=== PATIENT | male | born 1975 | race African-American/Black ===

== ENCOUNTER 2019-07-18 15:55 | Emergency (ER) | payer MEDICAID ==
[~2019-07-18] VITALS: Ht 177.8 cm; Wt 91.2 kg
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
[2019-07-18 16:44] LABS: ANION GAP 7 mmol/L (5-15); CALCIUM 8.7 mg/dL (8.5-10.1); CHLORIDE 104 mmol/L (98-107); CREATININE 1.29 mg/dL (0.7-1.3)
[2019-07-18 16:45] LABS: ALANINE AMINOTRANSFERASE 14 U/L (12-78); ALBUMIN 3.5 g/dL (3.4-5.0)
[2019-07-18 16:47] LABS: ALKALINE PHOSPHATASE 71 U/L (45-117); BILIRUBIN,TOTAL 0.9 mg/dL (0.2-1.0); TOTAL PROTEIN 7.9 g/dL (6.4-8.2)
[2019-07-18 16:49] LABS: MEAN CORPUSCULAR HEMOGLOBIN 28.6 pg (27.5-34.5); MEAN CORPUSCULAR HGB CONC 32.2 g/dL (33.2-36.2); MEAN CORPUSCULAR VOLUME 88.9 fL (81-97); MEAN PLATELET VOLUME 8.3 fL (7.4-10.4); PLATELET COUNT 285 x10^3/uL (130-400); RED BLOOD COUNT 5.26 x10^6/uL (4.38-5.82); RED CELL DISTRIBUTION WIDTH 15.1 % (9.4-14.8)
[2019-07-18 17:13] LABS: MD YES
[2019-07-18 17:17] LABS: EOS#(MANUAL) 0.21 x10^3/uL (0.0-0.4); EOS% (MANUAL) 4 % (1-7); LYMPH#(MANUAL) 2.03 x10^3/uL (1-3.4); LYMPHS% (MANUAL) 39 % (22-44); MONOS#(MANUAL) 0.47 x10^3/uL (0.3-2.7); MONOS% (MANUAL) 9 % (2-9); SEGS% (MANUAL) 48 % (42-75)
[2019-07-18 17:18] LABS: <PLATELET ESTIMATE> ADEQUATE; <PLT MORPHOLOGY> NORMAL PLT MORPH; ANISOCYTOSIS 1+
--- NOTE | 2019-07-18 17:23 | NUR ---
pt resting in [facility]. pt's aox4. resps even and unlabored. bp/spo2 monitors in place. call light within reach. at bedside.
[2019-07-18 18:05] VITALS: BP 147/95
== END 2019-07-18 18:10 | disposition home or self-care (01) ==
LOC: ED 16:52
DX: R05 Cough (principal); R11.2 Nausea with vomiting, unspecified; E11.9 Type 2 diabetes mellitus without complications; F17.200 Nicotine dependence, unspecified, uncomplicated
CPT/HCPCS: 36415; 71045; 80053; 83690; 85025; 93005; 99284

== ENCOUNTER 2020-02-05 22:37 | Inpatient (IN) | payer MEDICAID ==
[~2020-02-05] VITALS: Ht 177.8 cm; Wt 92.8 kg
[2020-02-05 23:00] VITALS: BP 122/78
[2020-02-05] MEDS ORDERED: POLYETHYLENE GLYCOL 17 GM PACKET PO PRN (23:30)
[2020-02-05] MEDS ORDERED: DOCUSATE 100 MG CAPSULE PO PRN (23:30)
[2020-02-05] MEDS ORDERED: ONDANSETRON ODT 4 MG PO PRN (23:30)
[2020-02-05] MEDS ORDERED: BISACODYL 10 MG SUPP PR PRN (23:30)
[2020-02-06 00:24] VITALS: BP 122/78
[2020-02-06 00:24] LABS: MICROSCOPIC NOT IND
[2020-02-06 06:45] LABS: CHOL/HDL RATIO 2.2; FREE T4 (FREE THYROXINE) 1.14 ng/dL (0.76-1.46); LDL/HDL RATIO 0.9 (0.5-3.0)
[2020-02-06 07:27] VITALS: BP 138/76
[2020-02-06] MEDS: NICOTINE 21 MG/24 HR PATCH.TD24 TD SCH (08:44)
[2020-02-06 19:06] VITALS: BP 156/98
[2020-02-07 07:31] VITALS: BP 151/106
[2020-02-07] MEDS: NICOTINE 21 MG/24 HR PATCH.TD24 TD SCH (08:39)
[2020-02-07] MEDS ORDERED: PRAZ2CAP2 PO (10:40)
[2020-02-07] MEDS ORDERED: SERT-237 PO (10:40)
[2020-02-07] MEDS ORDERED: BUPR150T6 PO (10:40)
[2020-02-07] MEDS: ESCITALOPRAM 10MG TABLET PO SCH (10:46)
[2020-02-07] MEDS: BUPROPION SR 150 MG TABLET PO SCH (12:57)
[2020-02-07 19:43] VITALS: BP 138/94
[2020-02-07] MEDS: ACETAMINOPHEN 325 MG TABLET PO PRN (20:14)
[2020-02-07] MEDS: PRAZOSIN 2 MG CAPSULE PO SCH (20:14)
[2020-02-08 07:31] VITALS: BP 152/108
[2020-02-08] MEDS: BUPROPION SR 150 MG TABLET PO SCH (08:20)
[2020-02-08] MEDS: ESCITALOPRAM 10MG TABLET PO SCH (08:20)
[2020-02-08] MEDS: NICOTINE 21 MG/24 HR PATCH.TD24 TD SCH (08:21)
[2020-02-08] MEDS ORDERED: LISINOPRIL 5 MG TABLET PO SCH (09:00)
[2020-02-08 10:45] VITALS: BP 156/102
[2020-02-08] MEDS ORDERED: LISINOPRIL 5 MG TABLET ONE (11:27)
[2020-02-08] MEDS ORDERED: LISINOPRIL 10 MG TABLET PO ONE (11:30)
[2020-02-08 15:01] VITALS: BP 150/100
[2020-02-08 19:09] VITALS: BP 146/93
[2020-02-08] MEDS: PRAZOSIN 2 MG CAPSULE PO SCH (20:25)
[2020-02-08] MEDS: ACETAMINOPHEN 325 MG TABLET PO PRN (20:25)
[2020-02-08] MEDS: LISINOPRIL 20 MG TABLET PO SCH (20:26)
[2020-02-09 07:50] VITALS: BP 149/94
[2020-02-09] MEDS: NICOTINE 21 MG/24 HR PATCH.TD24 TD SCH (09:00)
[2020-02-09] MEDS: ESCITALOPRAM 10MG TABLET PO SCH (09:03)
[2020-02-09] MEDS: BUPROPION SR 150 MG TABLET PO SCH (09:03)
[2020-02-09] MEDS: LISINOPRIL 20 MG TABLET PO SCH ×2 (09:03→20:16)
[2020-02-09 18:59] VITALS: BP 134/95
[2020-02-09] MEDS: PRAZOSIN 2 MG CAPSULE PO SCH (20:16)
[2020-02-09] MEDS: ACETAMINOPHEN 325 MG TABLET PO PRN (20:16)
[2020-02-09] MEDS: VRAYLAR 1.5 MG PO SCH (21:18)
[2020-02-10 07:00] VITALS: BP 131/89
[2020-02-10] MEDS: NICOTINE 21 MG/24 HR PATCH.TD24 TD SCH (09:00)
[2020-02-10] MEDS: LISINOPRIL 20 MG TABLET PO SCH ×2 (09:22→20:58)
[2020-02-10] MEDS: ESCITALOPRAM 10MG TABLET PO SCH (09:23)
[2020-02-10] MEDS: BUPROPION SR 150 MG TABLET PO SCH (09:23)
[2020-02-10 20:06] VITALS: BP 104/70
[2020-02-10] MEDS: PRAZOSIN 2 MG CAPSULE PO SCH (20:58)
[2020-02-10] MEDS: VRAYLAR 1.5 MG PO SCH (21:00)
[2020-02-11 07:33] VITALS: BP 105/69
[2020-02-11] MEDS: NICOTINE 21 MG/24 HR PATCH.TD24 TD SCH (09:00)
[2020-02-11] MEDS ORDERED: LISI-170 PO (10:40)
[2020-02-11] MEDS ORDERED: ESCI10TA PO (10:40)
[2020-02-11] MEDS ORDERED: BUPR150T73 PO (10:40)
[2020-02-11] MEDS ORDERED: NICO-487 TD (10:40)
[2020-02-11] MEDS ORDERED: PRAZ2CAP2 PO (10:40)
[2020-02-11] MEDS ORDERED: VRAYLAR PO (10:40)
[2020-02-11] MEDS: LISINOPRIL 20 MG TABLET PO SCH (11:00)
[2020-02-11] MEDS: ESCITALOPRAM 10MG TABLET PO SCH (11:00)
[2020-02-11] MEDS: BUPROPION SR 150 MG TABLET PO SCH (11:00)
== END 2020-02-11 12:46 | disposition home or self-care (01) | DRG 750 ==
LOC: 3E 22:59
PROVIDERS: ADMIT Psychiatry & Neurology Psychosomatic Medicine; ATTEND Psychiatry & Neurology Psychosomatic Medicine
DX: F25.0 Schizoaffective disorder, bipolar type (principal); F10.10 Alcohol abuse, uncomplicated; F11.20 Opioid dependence, uncomplicated; F12.90 Cannabis use, unspecified, uncomplicated; F15.20 Other stimulant dependence, uncomplicated; F17.210 Nicotine dependence, cigarettes, uncomplicated; T14.91XA Suicide attempt, initial encounter; R07.89 Other chest pain; F51.5 Nightmare disorder; I10 Essential (primary) hypertension; Z59.0 Homelessness; Z79.899 Other long term (current) drug therapy
CPT/HCPCS: 36415; 71045; 80061; 81003; 82607; 84439; 84443; 93005

== ENCOUNTER 2020-02-19 07:20 | Emergency (ER) | payer MEDICAID ==
[~2020-02-19] VITALS: Ht 177.8 cm; Wt 95.5 kg
[~2020-02-19 07:20] MED LIST: BUPR150T6 PO; BUPR150T73 PO; ESCI10TA PO; LISI-170 PO; NICO-487 TD; PRAZ2CAP2 PO; SERT-237 PO; VRAYLAR PO
[2020-02-19 07:51] VITALS: BP 101/72
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
[2020-02-19 08:25] LABS: AMPHETAMINE SCREEN, URINE Positive (Negative); BARBITURATE SCREEN, URINE Negative (Negative); BENZODIAZEPINE SCREEN, URINE Negative (Negative); CANNABINOID SCREEN, URINE Positive (Negative); METHADONE SCREEN, URINE Negative (Negative); OPIATE SCREEN, URINE Negative (Negative)
[2020-02-19 08:32] LABS: COCAINE SCREEN, URINE Negative (Negative)
[2020-02-19 08:46] LABS: MEAN CORPUSCULAR HEMOGLOBIN 28.9 pg (27.5-34.5); MEAN CORPUSCULAR VOLUME 90.2 fL (81-97); MEAN PLATELET VOLUME 8.1 fL (7.4-10.4); PLATELET COUNT 224 x10^3/uL (130-400); RED BLOOD COUNT 4.59 x10^6/uL (4.38-5.82); RED CELL DISTRIBUTION WIDTH 15.2 % (9.4-14.8)
[2020-02-19 08:48] LABS: ALANINE AMINOTRANSFERASE 19 U/L (12-78); ALBUMIN 3.5 g/dL (3.4-5.0); ANION GAP 6 mmol/L (5-15); CALCIUM 8.6 mg/dL (8.5-10.1); CHLORIDE 112 mmol/L (98-107); CREATININE 1.35 mg/dL (0.7-1.3)
[2020-02-19 08:51] LABS: ALKALINE PHOSPHATASE 54 U/L (45-117); BILIRUBIN,TOTAL 1.2 mg/dL (0.2-1.0); TOTAL PROTEIN 7.1 g/dL (6.4-8.2)
[2020-02-19 08:54] LABS: SALICYLATE LEVEL < 1.7 mg/dL (2.8-20.0)
[2020-02-19 09:12] LABS: BASOPHILS # (AUTO) 0.02 x10^3/uL (0-0.1); BASOPHILS % (AUTO) 1 % (0-1); EOSINOPHILS % (AUTO) 2 % (1-7); LYMPHOCYTES # (AUTO) 1.27 x10^3/uL (1-3.4); LYMPHOCYTES % (AUTO) 25 % (22-44); MD SCAN; MONOCYTES # (AUTO) 0.34 x10^3/uL (0.2-0.8); MONOCYTES % (AUTO) 7 % (2-9); NEUTROPHILS # (AUTO) 3.42 x10^3/uL (1.8-6.8); NEUTROPHILS % (AUTO) 66 % (42-75)
== END 2020-02-19 10:31 | disposition home or self-care (01) ==
LOC: ED 08:30
DX: F15.10 Other stimulant abuse, uncomplicated (principal); E11.9 Type 2 diabetes mellitus without complications
CPT/HCPCS: 36415; 80053; 80307; 85025; 99283